=== PATIENT | male | born 1980 | race African-American/Black ===

== ENCOUNTER 2023-05-21 06:08 | Emergency (ER) | payer OTHER ==
[~2023-05-21 06:08] MED LIST: ANAPROX DS550 MG PO; SEPTRA DS 800 M1 TAB PO
[2023-05-21 06:32] LABS: BILIRUBIN Negative (Negative); BLOOD Negative (Negative); CLARITY Clear (Clear); COLOR Dark Yellow (Yellow); GLUCOSE Negative (Negative); KETONE Trace (Negative); LEUKO ESTERASE Negative (Negative); NITRITE Negative (Negative); PH 5.5 (4.5-8.0); SPECIFIC GRAVITY >= 1.030 (1.001-1.030)
[2023-05-21 07:21] LABS: MUCOUS 2+
[2023-05-21 07:22] LABS: BACTERIA 1+; CALCIUM OXALATE CRYSTALS Trace; RBC 0-2 rbc/hpf (0-2)
[2023-05-21] MEDS ORDERED: AVPAK AZITHROM250 M1 PO (08:22)
== END 2023-05-21 08:28 | disposition home or self-care (01) ==
LOC: ED 06:08
PROVIDERS: Internal Medicine
DX: J40 Bronchitis, not specified as acute or chronic (principal); H61.22 Impacted cerumen, left ear; F17.200 Nicotine dependence, unspecified, uncomplicated